=== PATIENT | female | born 1980 | race Caucasian/White ===

== ENCOUNTER 2017-08-07 04:17 | Emergency (ER) | payer OTHER ==
[~2017-08-07] VITALS: Ht 177.8 cm; Wt 89.2 kg
[2017-08-07 05:19] LABS: HEMATOCRIT 37.4 % (34.6-47.8); HEMOGLOBIN 12.7 g/dL (11.7-16.4); WHITE BLOOD COUNT 14.3 x10^3/uL (3.4-10)
[2017-08-07 05:31] LABS: ASPARTATE AMINO TRANSFERASE 16 U/L (15-37); BLOOD UREA NITROGEN 12 mg/dL (7-18)
[2017-08-07 07:08] VITALS: BP 112/70
== END 2017-08-07 07:10 | disposition home or self-care (01) ==
LOC: ED 05:48
DX: O20.0 Threatened abortion (principal); Z3A.17 17 weeks gestation of pregnancy
CPT/HCPCS: 36415; 76805; 80053; 81001; 84702; 85025; 86901; 87086; 99285

== ENCOUNTER 2017-08-18 07:25 | Inpatient (IN) | payer OTHER ==
[~2017-08-18] VITALS: Ht 177.8 cm; Wt 87.8 kg
[2017-08-18] MEDS ORDERED: PRENATALS (07:43)
[2017-08-18 07:59] LABS: HEMATOCRIT 38.4 % (34.6-47.8); HEMOGLOBIN 13.3 g/dL (11.7-16.4); WHITE BLOOD COUNT 18.8 x10^3/uL (3.4-10)
[2017-08-18 08:12] LABS: ASPARTATE AMINO TRANSFERASE 13 U/L (15-37); BLOOD UREA NITROGEN 9 mg/dL (7-18)
[2017-08-18] MEDS ORDERED: SODIUM CHLORIDE 0.9% 1,000 ML IV ONE (08:40)
[2017-08-18] MEDS ORDERED: OXYTOCIN 30U/ 0.9% NaCL 500ML 500 ML ONE (08:42)
[2017-08-18] MEDS ORDERED: MORPHINE SULFATE 4 MG/ML, 1ML IVPush PRN (09:00)
[2017-08-18] MEDS ORDERED: ONDANSETRON 2MG/ML, 2ML IVPush PRN ×3 (09:00→13:00)
[2017-08-18] MEDS ORDERED: SODIUM CHLORIDE FLUSH 10ML SYR IVF PRN (09:00)
[2017-08-18 09:30] VITALS: BP 122/60
[2017-08-18] MEDS ORDERED: MISOPROSTOL 200 MCG TABLET ONE (09:47)
[2017-08-18] MEDS ORDERED: SODIUM CITRATE/CITRIC ACID 30 ML UDC ONE (11:22)
[2017-08-18] MEDS ORDERED: METOCLOPRAMIDE 5 MG/ML, 2ML ONE (11:22)
[2017-08-18] MEDS ORDERED: PROMETHAZINE 25 MG/ML, 1ML IV PRN (11:30)
[2017-08-18] MEDS ORDERED: HYDROcodone/APAP 7.5-325MG/15ML UDC PO PRN ×2 (11:30→13:00)
[2017-08-18] MEDS ORDERED: hydrALAzine 20 MG/ML, 1ML IV PRN (11:30)
[2017-08-18] MEDS ORDERED: EPHEDRINE 50 MG/ML, 1ML IVPush PRN (11:30)
[2017-08-18] MEDS ORDERED: HYDROmorphone 1 MG/ML, 1ML IV PRN (11:30)
[2017-08-18] MEDS ORDERED: MIDAZOLAM 1 MG/ML, 2ML IV PRN (11:30)
[2017-08-18] MEDS ORDERED: FENTANYL PF 100 MCG/2ML IV PRN (11:30)
[2017-08-18] MEDS ORDERED: MEPERIDINE/PF 25MG/0.5ML IVPush PRN (11:30)
[2017-08-18] MEDS ORDERED: LABETALOL 5MG/ML, 20ML IV PRN (11:30)
[2017-08-18] MEDS ORDERED: ALBUTEROL SULFATE 2.5 MG/3 ML NPPB PRN (11:30)
[2017-08-18] MEDS ORDERED: MIDAZOLAM 1 MG/ML, 2ML ONE (11:31)
[2017-08-18] MEDS ORDERED: FENTANYL PF 100 MCG/2ML ONE (11:31)
[2017-08-18] MEDS ORDERED: ONDANSETRON 2MG/ML, 2ML ONE (11:48)
[2017-08-18] MEDS ORDERED: DIPHENHYDRAMINE 50 MG/ML, 1ML ONE (11:48)
[2017-08-18] MEDS ORDERED: SUCCINYLCHOLINE 20 MG/ML, 10ML ONE (11:48)
[2017-08-18] MEDS ORDERED: PROPOFOL 10 MG/ML, 20ML ONE (11:48)
[2017-08-18] MEDS ORDERED: DEXAMETHASONE 4 MG/ML, 1ML ONE (11:48)
[2017-08-18] MEDS ORDERED: DOXYCYCLINE 100 MG in DEXTROSE 5% 250 ML IV STA (11:49)
[2017-08-18] MEDS ORDERED: METHYLERGONOVINE 0.2 MG/ML IM ONE (12:12)
[2017-08-18] MEDS ORDERED: LACTATED RINGERS 1,000 ML IV SCH (12:48)
[2017-08-18] MEDS ORDERED: FENTANYL PF 100 MCG/2ML IVPush PRN (13:00)
[2017-08-18] MEDS ORDERED: PROMETHAZINE 25 MG/ML, 1ML IVPush ONE (13:00)
[2017-08-18] MEDS ORDERED: IBUPROFEN 600 MG TABLET PO PRN (13:00)
[2017-08-18] MEDS ORDERED: PROMETHAZINE 25 MG/ML, 1ML ONE (13:04)
[2017-08-18] MEDS ORDERED: OXYcodone 5 MG/5 ML ORAL.SOL UDC ONE (13:04)
[2017-08-18] MEDS: OXYcodone 5 MG/5 ML ORAL.SOL UDC PO PRN ×2 (13:07→13:12)
[2017-08-18 13:19] LABS: HEMATOCRIT 32.6 % (34.6-47.8); HEMOGLOBIN 11.4 g/dL (11.7-16.4); WHITE BLOOD COUNT 17.8 x10^3/uL (3.4-10)
[2017-08-18] MEDS ORDERED: IBUPROFEN 600 MG TABLET ONE (13:34)
[2017-08-18] MEDS ORDERED: SODIUM CITRATE/CITRIC ACID 30 ML UDC PO ONE (14:30)
[2017-08-18] MEDS ORDERED: METOCLOPRAMIDE 5 MG/ML, 2ML IVPush ONE (14:30)
[2017-08-18] MEDS ORDERED: IBUP-1223 PO (16:15)
[2017-08-18] MEDS ORDERED: DOXY100T9 PO ×2 (16:16→16:34)
[2017-08-18] MEDS ORDERED: IBUP-1222 PO (16:34)
== END 2017-08-18 17:23 | disposition home or self-care (01) | DRG 770 ==
LOC: ED 07:54 → EDIP 08:40 → OBSVTOIN 08:40 → INTOOBSV 08:40 → LDIP 09:19
PROVIDERS: ADMIT Obstetrics & Gynecology Maternal & Fetal Medicine; ATTEND Obstetrics & Gynecology Maternal & Fetal Medicine
PROC: 10D17ZZ Extraction of Products of Conception, Retained, Via Natural or Artificial Opening (ICD-10-PCS; principal; 2017-08-18)
DX: O03.4 Incomplete spontaneous abortion without complication (principal); O41.02X0 Oligohydramnios, second trimester, not applicable or unspecified; O72.0 Third-stage hemorrhage; J45.909 Unspecified asthma, uncomplicated; O99.52 Diseases of the respiratory system complicating childbirth; Z87.891 Personal history of nicotine dependence
CPT/HCPCS: 36415; 76815; 80053; 81001; 85025; 86803; 87086; 88305; 99214; 99285; J1100; J2250; J2405; J2550; J2704; J3010; G0463; J0330; J1200; J2765

== ENCOUNTER 2021-04-12 19:49 | Emergency (ER) | payer OTHER ==
[~2021-04-12] VITALS: Ht 177.8 cm; Wt 89.2 kg
[~2021-04-12 19:49] MED LIST: DOXY-162 PO; IBUP-1222 PO; IBUP-1223 PO; PRENATALS
[2021-04-12 21:07] LABS: BASOPHILS % (AUTO) 1 % (0-1); EOSINOPHILS % (AUTO) 3 % (1-7); LYMPHOCYTES % (AUTO) 24 % (22-44); MEAN CORPUSCULAR HEMOGLOBIN 32.5 pg (27.0-34.8); MEAN CORPUSCULAR HGB CONC 34.9 g/dL (32.4-35.8); MEAN PLATELET VOLUME 7.4 fL (7.4-10.4); MONOCYTES % (AUTO) 6 % (2-9); NEUTROPHILS % (AUTO) 67 % (42-75); PLATELET COUNT 383 x10^3/uL (130-400); RED BLOOD COUNT 4.54 x10^6/uL (3.82-5.3); RED CELL DISTRIBUTION WIDTH 12.3 % (9.6-15.2)
[2021-04-12 21:09] LABS: MD NO
[2021-04-12 21:19] LABS: ALBUMIN 3.9 g/dL (3.4-5.0); ANION GAP 5 mmol/L (5-15); CALCIUM 9.2 mg/dL (8.5-10.1); CHLORIDE 108 mmol/L (98-107); CREATININE 0.85 mg/dL (0.55-1.02)
--- NOTE | 2021-04-12 21:37 | NUR ---
PT C/O OF VAGIBNAL BLEEDING AROUND 1800. PT STATES SHE HAS BEEN ANXIOUS ALL DAY STATES SHE SAW SPOTTING AND A CLOT THE SIZE OF A QUARTER. PT ATTACHED TO MONITORS. VSS. PT JUST LEFT TO US
--- NOTE | 2021-04-12 22:49 | NUR ---
Patient is resting comfortably in bed. Bed in lowest, rails engaged, call light on lap. Vital Signs within normal limits. WCTM.
[2021-04-12 23:09] LABS: MICROSCOPIC INDICATED
--- NOTE | 2021-04-12 23:52 | NUR ---
Patient is resting comfortably in bed. Bed in lowest, rails engaged, call light on lap. Vital Signs within normal limits. WCTM.
[2021-04-13 00:42] VITALS: BP 106/60
== END 2021-04-13 00:45 | disposition home or self-care (01) ==
LOC: ED 21:31
DX: O20.0 Threatened abortion (principal); O99.331 Smoking (tobacco) complicating pregnancy, first trimester; F17.210 Nicotine dependence, cigarettes, uncomplicated; Z3A.01 Less than 8 weeks gestation of pregnancy
CPT/HCPCS: 36415; 76801; 80048; 81001; 82040; 84702; 85025; 86901; 87086; 99406